=== PATIENT | female | born 1995 | race Caucasian/White ===

== ENCOUNTER 2023-06-02 09:54 | Outpatient (CLI) | payer OTHER, SELFPAY | END 2023-06-02 09:55 | disposition home or self-care (01) | LOC: NFLDREF 06-05 05:55 | PROVIDERS: PCP Physician Assistant Medical; Referring Provider Physician Assistant Medical; Visit Provider Physician Assistant Medical | DX: Z00.00 Encounter for general adult medical examination without abnormal findings (principal); R53.83 Other fatigue; Z13.1 Encounter for screening for diabetes mellitus; Z13.6 Encounter for screening for cardiovascular disorders | CPT/HCPCS: 80053; 80061 ==

== ENCOUNTER 2023-06-03 10:30 | Outpatient (CLI) | payer OTHER, SELFPAY | END 2023-06-03 10:31 | disposition home or self-care (01) | PROVIDERS: PCP Physician Assistant Medical; Visit Provider Physician Assistant Medical | DX: Z00.00 Encounter for general adult medical examination without abnormal findings (principal); R53.83 Other fatigue; N92.6 Irregular menstruation, unspecified; Z11.9 Encounter for screening for infectious and parasitic diseases, unspecified | CPT/HCPCS: 82306; 82728; 84443; 86140; 86618 ==

== ENCOUNTER 2023-07-14 15:25 | Outpatient (CLI) | payer OTHER, SELFPAY | END 2023-07-14 15:26 | disposition home or self-care (01) | LOC: NFLDREF 07-15 07:00 | PROVIDERS: PCP Physician Assistant Medical; Referring Provider Physician Assistant Medical; Visit Provider Physician Assistant Medical | DX: Z00.00 Encounter for general adult medical examination without abnormal findings (principal); Z11.1 Encounter for screening for respiratory tuberculosis; Z11.59 Encounter for screening for other viral diseases | CPT/HCPCS: 86480; 86703; 86803 ==

== ENCOUNTER 2024-11-21 11:34 | Outpatient (CLI) | payer BC, SELFPAY | END 2024-11-21 11:35 | disposition home or self-care (01) | PROVIDERS: PCP Physician Assistant Medical; Visit Provider Physician Assistant Medical | DX: N92.6 Irregular menstruation, unspecified (principal); R53.83 Other fatigue; F41.9 Anxiety disorder, unspecified; Z13.6 Encounter for screening for cardiovascular disorders; Z13.0 Encounter for screening for diseases of the blood and blood-forming organs and certain disorders involving the immune mechanism | CPT/HCPCS: 80053; 80061; 82306; 82728; 84443 ==